=== PATIENT | male | born 1980 | race Caucasian/White ===

== ENCOUNTER 2020-09-07 11:25 | Emergency (ER) | payer MEDICAID, OTHER ==
[~2020-09-07] VITALS: Ht 165.1 cm; Wt 68.0 kg
[2020-09-07 11:29] VITALS: BP 123/79
--- NOTE | 2020-09-07 11:35 | NUR ---
PATIENT AMBULATED TO BED 11.
[2020-09-07] MEDS ORDERED: cephALEXin 500 MG CAP PO ONE (11:55)
--- NOTE | 2020-09-07 12:20 | NUR ---
39 YEAR OLD MALE COMPLAINS OF RIGHT FOOT PAIN AFTER STEPPING ON A NAIL X4 DAYS AGO. SITE IS WITH REDNESS AND SWELLING. PT AOX4, BREATHING EVEN AND UNLABORED, SKIN WARM AND DRY. BED IN LOWEST POSITION, SEMI-FOWLERS, LOCKED, BED RAIL UPX1. PMH - SCHIZOPHRENIA ALLERGIES - NKA
[2020-09-07] MEDS ORDERED: SULF-58 PO (13:07)
[2020-09-07] MEDS ORDERED: CEPH-588 PO (13:07)
[2020-09-07 13:19] VITALS: BP 123/79
--- NOTE | 2020-09-07 13:20 | NUR ---
Patient discharged with v/s stable. Written and verbal after care instructions given and explained. Patient alert, oriented and verbalized understanding of instructions. Ambulatory with steady gait. All questions addressed prior to discharge. ID band removed. Patient advised to follow up with PMD. Rx of KEFLEX AND BACTRIM given. Patient educated on indication of medication including possible reaction and side effects. Opportunity to ask questions provided and answered.
== END 2020-09-07 13:20 | disposition home or self-care (01) ==
LOC: MED 11:25
DX: L03.115 Cellulitis of right lower limb (principal); Z79.899 Other long term (current) drug therapy
CPT/HCPCS: 73630; 90471; 90715; 99283